=== PATIENT | male | born 1960 | race Caucasian/White ===

== ENCOUNTER 2022-01-02 07:25 | Day surgery (SDC) | payer BC, SELFPAY ==
[2021-12-25 13:01] VITALS: BMI 29.8
--- NOTE | 2022-01-01 12:10 | HO.ANESPROP2 ---
Documented by User: Bianca Esquivel NP 01/01/22 12:11 HPI - Anesthesia Eval Consult details Narrative: 61yo M for Upper Endoscopy and Colonoscopy [facility] Past Medical History Medical History (Updated 12/25/21 @ 13:00 by Mamta Bowers RN) Kerr's esophagus GERD (gastroesophageal reflux disease) HTN (hypertension) Surgical History Surgical History (Updated 12/25/21 @ 13:00 by Mamta Bowers RN) History of esophagogastroduodenoscopy (EGD) Hx of colonoscopy Social History Social History Advance Directives: No Advance Directives Information Provided: Yes Meds Allergies Allergy/AdvReac Type Severity Reaction Status Date / Time No Known Allergies Allergy Verified 01/01/22 12:07 Home Medications Medication Instructions Recorded Confirmed Last Taken Type lisinopril 20 mg tablet 1 tab PO DAILY 12/25/21 12/25/21 Unknown History omeprazole 40 mg capsule,delayed 40 mg PO BID 12/25/21 12/25/21 Unknown History release Exam Exam Date and Time: January 01, 2022 1210 Height,Weight and Vital Signs: Height 6 ft Weight 99.79 kg Assessment and Plan Assessment Anesthesia Assessment: Chart Reviewed Documented by User: Lara Forbes MD 01/02/22 08:11 [facility] Past Medical History Medical History (Updated 12/25/21 @ 13:00 by Mamta Bowers RN) Kerr's esophagus GERD (gastroesophageal reflux disease) HTN (hypertension) Family History Family history of problems with anesthesia: No Surgical History Surgical History (Updated 12/25/21 @ 13:00 by Mamta Bowers RN) History of esophagogastroduodenoscopy (EGD) Hx of colonoscopy History of Problems with Anesthesia: No Social History Social History Advance Directives: No Advance Directives Information Provided: Yes Meds Allergies Allergy/AdvReac Type Severity Reaction Status Date / Time No Known Allergies Allergy Verified 01/01/22 12:07 Home Medications Medication Instructions Recorded Confirmed Last Taken Type lisinopril 20 mg tablet 1 tab PO DAILY 12/25/21 12/25/21 Unknown History omeprazole 40 mg capsule,delayed 40 mg PO BID 12/25/21 12/25/21 Unknown History release Exam Airway Mallampati Class: II TM Dist: >3cm Neck ROM: Full Assessment and Plan Assessment Anesthesia Assessment: Anesthesia Plan Discussed Final Anesthetic Review Family History of Problems with Anesthesia: No History of Problems with Anesthesia: No NPO: Yes ASA Class: II Final Preanesthetic Review: No Changes in Pt Med Stat, Meds/Allgs Chart Reviewed, Consent Obtained/Reviewed and Anes Risks/Benef Reviewed Patient Risk: Low Procedure Risk: Low Anesthetic Plan Anesthetic Plan: MAC: Disposition: Standard PACU
[2022-01-02] MEDS: Lactated Ringers 1,000 ML 100 ML IVCONT (08:29)
--- NOTE | 2022-01-02 08:42 | MHC.SHP ---
Pre-Procedural Eval Section A Date of Service: 01/02/22 Section B Chief Complaint: screening,Kerr's Details of Present Illness: see H&P no changes Relevant Family History (Specify if Yes): No Relevant Social History: None Present Medications: see Short Stay Collaborative assessment Medical History: No relevant PMH History of Previous Operations: No relevant previous surgery Allergies: Allergies Allergy/AdvReac Type Severity Reaction Status Date / Time No Known Allergies Allergy Verified 01/02/22 08:16 Review of Systems Sugical H&P ROS: Negative: Constitution, Cardiovascular, Respiratory, Neurological, Psychiatric, Hem-Onc, Allergic/Immunologic, Gastrointestinal, Genitourinary, Musculoskeletal, Integumentary, Endocrine and Eyes/Ears/Nose/Throat Exam Surgical H&P Exam: Normal: HEENT, Normal: Heart, Normal: Lungs, Normal: Extremities, Normal: Abdomen, Normal: Skin and Normal: Neurological Plan Diagnosis/Plan: Unchanged I have reviewed the history and physical and performed a pertinent physical examination on my patient. No changes have occurred unless specified.
[2022-01-02 09:18] VITALS: BP 112/77; PULSE 78; RESP 16; TEMP 36.3; O2SAT 99
--- NOTE | 2022-01-02 09:23 | P.BOP_ITS ---
Brief Operative Note Date of Service: 01/02/22 Pre-op diagnosis: barretts, screening Post-op diagnosis: same Procedure: egd Surgeon: Timur Fraire Anesthesia: MAC Was an Packing Floor Worker used for this Procedure?: No Estimated blood loss (mL): 2 Pathology: none sent (bxs egj) Condition: stable Disposition: PACU
[2022-01-02 09:33] VITALS: BP 124/79; PULSE 65; RESP 18; TEMP 36.3; O2SAT 97
--- NOTE | 2022-01-02 12:48 | OP_ITS ---
SURGEON: Timur Fraire MD INDICATIONS: 1. Kerr's esophagus. 2. Colon cancer screening. PREOPERATIVE DIAGNOSIS: POSTOPERATIVE DIAGNOSIS: PROCEDURE PERFORMED: ESTIMATED BLOOD LOSS: COMPLICATIONS: ANESTHESIA: ASSISTANTS: SPECIMENS: PROCEDURE: 1. Upper endoscopy with biopsy. 2. Colonoscopy to the terminal ileum. MEDICATIONS: Monitored anesthesia care. DESCRIPTION OF PROCEDURE: History and physical performed. The risks and benefits of the procedure were explained to the patient. Informed consent was obtained. The patient was placed in the left lateral decubitus position. The Olympus video gastroscope was introduced into the esophagus, stomach, and duodenum. Examination was performed. The scope was removed. He tolerated the procedure well. He was repositioned for colonoscopy. A digital rectal exam was performed and was found to be normal. The Olympus pediatric video colonoscope was introduced into the rectum and advanced to the cecum without difficulty. The cecum was identified by transillumination, palpation, and identification of ileocecal valve. Examination was performed. The scope was removed. He tolerated both procedures well and was returned to recovery in stable condition. FINDINGS: UPPER ENDOSCOPY: Esophagus: The esophagus showed irregular EG junction with a 1 cm area consistent with Kerr's esophagus. There was no esophagitis. There were no raised lesions or ulcerated areas. Biopsies were obtained at the EG junction. There was a small hiatal hernia measuring approximately 3 mm. Stomach: The stomach showed multiple benign-appearing polyps, consistent with fundic gland polyps. The antrum was normal. Duodenum: The bulb and second portion were normal. COLONOSCOPY: The terminal ileum was examined and appeared normal. The visualized colonic mucosa was normal. The quality of prep was good. No polyps were identified. Retroflexed examination showed some small internal hemorrhoids. IMPRESSION: 1. Kerr esophagus. 2. Normal colonoscopy. RECOMMENDATION: 1. Follow up as needed. 2. Repeat colonoscopy is recommended in 10 years for average risk individuals. MD MELISA Hall/MARY KAYL / [id number]
== END 2022-01-02 09:49 | disposition home or self-care (01) ==
PROVIDERS: PCP Internal Medicine; Visit Provider Internal Medicine Gastroenterology
PROC: (CPT 45378; principal; 2022-01-02 08:40)
DX: Z12.11 Encounter for screening for malignant neoplasm of colon (principal); K64.8 Other hemorrhoids; K22.70 Barrett's esophagus without dysplasia; K21.9 Gastro-esophageal reflux disease without esophagitis; K44.9 Diaphragmatic hernia without obstruction or gangrene; K31.7 Polyp of stomach and duodenum; I10 Essential (primary) hypertension; Z79.899 Other long term (current) drug therapy
CPT/HCPCS: 45378; 43239; 88305